=== PATIENT | female | born 1990 | race Asian ===

== ENCOUNTER 2023-03-25 15:11 | Emergency (ER) | payer OTHER ==
[~2023-03-25] VITALS: Ht 162.6 cm; Wt 72.6 kg
[2023-03-25 15:30] VITALS: BP 135/769; TEMP 98
== END 2023-03-25 19:32 | disposition home or self-care (01) ==
LOC: ED 15:11
DX: S39.012A Strain of muscle, fascia and tendon of lower back, initial encounter (principal); R10.9 Unspecified abdominal pain
CPT/HCPCS: 81002; 81025; 99283; J1885; J2930

== ENCOUNTER → 2023-07-14 | Outpatient (CLI) | payer OTHER | LOC: RAD 19:00 | PROVIDERS: ATTEND Family Medicine | DX: S60.221A Contusion of right hand, initial encounter (principal); Y92.89 Other specified places as the place of occurrence of the external cause ==

== ENCOUNTER 2023-07-15 12:00 | Outpatient (CLI) | payer OTHER | END 2023-07-15 19:52 | disposition home or self-care (01) | LOC: ED 12:00 | PROVIDERS: ATTEND Nurse Practitioner Family | DX: S60.221A Contusion of right hand, initial encounter (principal); Y92.89 Other specified places as the place of occurrence of the external cause ==